=== PATIENT | female | born 1995 | race Caucasian/White ===

== ENCOUNTER 2018-03-03 20:58 | Emergency (ER) | payer MEDICAID ==
[2018-03-03 22:19] LABS: microscopic required? NO
[2018-03-03 22:45] LABS: UA SPECIFIC GRAVITY 1.015 (1.005-1.035); urine erythrocyte NEGATIVE (NEGATIVE)
[2018-03-04 00:12] VITALS: BP 122/64
== END 2018-03-04 00:12 | disposition home or self-care (01) ==
LOC: ED 20:58
PROVIDERS: Emergency Medicine
DX: N93.9 Abnormal uterine and vaginal bleeding, unspecified (principal)
CPT/HCPCS: 87491; 87591

== ENCOUNTER 2019-07-18 20:30 | Emergency (ER) | payer OTHER ==
[~2019-07-18] VITALS: Ht 160 cm; Wt 64.4 kg
[2019-07-18 20:59] VITALS: Ht 160 cm; Wt 64.4 kg
[2019-07-18 23:37] VITALS: BP 118/78
== END 2019-07-18 23:35 | disposition home or self-care (01) ==
LOC: ED 20:30
DX: S03.00XA Dislocation of jaw, unspecified side, initial encounter (principal); X58.XXXA Exposure to other specified factors, initial encounter; Y93.89 Activity, other specified; Y92.89 Other specified places as the place of occurrence of the external cause; Y99.8 Other external cause status